=== PATIENT | male | born 1960 | race Caucasian/White ===

== ENCOUNTER 2020-10-03 18:28 | Inpatient (IN) | payer SELFPAY ==
[~2020-10-03 18:28] MED LIST: Dexamethasone 20 MG/5 ML VIAL ONE; Lidocaine 1% PF 5 ML VIAL ONE; Ondansetron PF 4 MG/2 ML Vial ONE; PHENYLEPHRINE-NS 100 MCG/ML 10 ML SYRINGE ONE; PROPOFOL 200 MG/20 ML VIAL ONE; Succinylcholine 200 MG/10 ml SYRINGE FS ONE
[2020-10-03] MEDS ORDERED: Sodium Chloride 0.9% 0 ML ONE (18:44)
[2020-10-03] MEDS ORDERED: Chlorhexidine Gluconate 15 ML UDCUP SSP ONE (18:44)
[2020-10-03] MEDS ORDERED: Bacitracin Zinc Ointment 30 gm TUBE ONE (18:44)
[2020-10-03] MEDS ORDERED: Lidocaine 1% w/Epinephrine 1:100K 20 ML VIAL ONE (18:44)
[2020-10-03] MEDS ORDERED: Fentanyl 100 MCG/2 ML VIAL ONE ×3 (18:46→21:41)
[2020-10-03] MEDS ORDERED: HYDROmorphone 0.5 MG/0.5 ML SYRINGE ONE (18:47)
[2020-10-03] MEDS ORDERED: AFRIN NASAL MIST 15 ML BOT ONE (19:02)
[2020-10-03] MEDS ORDERED: Phenylephrine 10 MG/ML VIAL ONE (20:10)
[2020-10-03] MEDS ORDERED: Ondansetron HCl/PF 4 MG/2 ML Vial IVP PRN (20:42)
[2020-10-03] MEDS ORDERED: Promethazine HCl 25 MG/ML VIAL SLOW IVP PRN (20:42)
[2020-10-03] MEDS ORDERED: Ondansetron PF 4 MG/2 ML Vial IVP PRN (21:18)
[2020-10-03] MEDS ORDERED: Acetaminophen 325 MG TAB PO PRN (21:18)
[2020-10-03] MEDS ORDERED: Dextrose 50% Abboject 50 ML SYRINGE SLOW IVP PRN (21:22)
[2020-10-03] MEDS ORDERED: Dextrose 5% in Water 1,000 ML IV PRN (21:22)
[2020-10-03] MEDS ORDERED: Ibuprofen 600 MG TAB PO PRN (21:37)
[2020-10-03] MEDS: Clindamycin/D5W 600 MG in Premix Bag 1 BAG IVPB SCH (23:21)
[2020-10-03] MEDS: HYDROcodone/Acetaminophen 5/325 mg Tablet PO PRN (23:36)
[2020-10-04] MEDS: Clindamycin/D5W 600 MG in Premix Bag 1 BAG IVPB SCH ×4 (06:31→23:53)
[2020-10-04] MEDS: HumaLOG 300 UNITS/3 ML VIAL SC PRN ×2 (06:32→15:37)
[2020-10-04 07:28] LABS: #Basophils 0.1 thou/uL (0.0-0.2); #Lymphocytes 0.3 thou/uL (1.20-3.40); #Monocytes 0.3 thou/uL (0.11-0.59); #Neutrophils 7.9 thou/uL (1.40-6.50); %Basophils 1.1 % (0.0-1.0); %Eosinophils 0.1 % (0.0-10.0); %Lymphocytes 3.3 % (21.0-51.0); %Monocytes 2.9 % (0.0-10.0); %Neutrophils 92.6 % (42.0-75.0); Hemoglobin 13.3 g/dL (14.0-18.0); Mean Corpuscular HGB CONC 32.6 g/dL (32.0-36.0); Mean Corpuscular Hemoglobin 32.6 pg (27.0-31.0); Mean Platelet Volume 6.9 fL (7.4-10.4); Platelet Count 289 thou/uL (130-400); Red Blood Cell (RBC) Count 4.07 mill/uL (4.70-6.10); White Blood Cell (WBC) Count 8.6 thou/uL (4.8-10.8)
[2020-10-04 07:49] LABS: Anion Gap 15 mmol/L (10-20); BUN (Urea Nitrogen) 12 mg/dL (8.4-25.7); Calc. Creatinine Clearance 88 mL/min (70-130); Calcium 8.3 mg/dL (7.8-10.44); Carbon Dioxide 22 mmol/L (22-29); Chloride 103 mmol/L (98-107); Glucose 262 mg/dL (70-105); Sodium 135 mmol/L (136-145)
[2020-10-04] MEDS ORDERED: traMADol HCl 50 MG TAB PO PRN (07:53)
[2020-10-04] MEDS: Glimepiride 2 MG TAB PO SCH ×2 (09:29→21:31)
[2020-10-04] MEDS: busPIRone HCl 5 MG TAB PO SCH ×2 (09:29→21:30)
[2020-10-04] MEDS: Levothyroxine Sodium 100 MCG TAB PO SCH (09:29)
[2020-10-04] MEDS: metFORMIN 500 MG TAB PO SCH ×2 (09:29→18:16)
[2020-10-04] MEDS: HYDROcodone/Acetaminophen 5/325 mg Tablet PO PRN ×4 (09:33→23:53)
[2020-10-04] MEDS: Chlorhexidine Gluconate 15 ML UDCUP SSP SCH ×3 (10:38→21:31)
[2020-10-04] MEDS: Bacitracin 1 PK TOP PRN (10:39)
[2020-10-05] MEDS: Clindamycin/D5W 600 MG in Premix Bag 1 BAG IVPB SCH ×2 (05:45→11:58)
[2020-10-05] MEDS: HYDROcodone/Acetaminophen 5/325 mg Tablet PO PRN ×5 (05:46→23:37)
[2020-10-05 06:55] LABS: #Eosinphils 0.1 thou/uL (0.0-0.7); #Lymphocytes 1.4 thou/uL (1.20-3.40); #Monocytes 1.2 thou/uL (0.11-0.59); #Neutrophils 5.8 thou/uL (1.40-6.50); %Basophils 0.3 % (0.0-1.0); %Eosinophils 1.2 % (0.0-10.0); %Lymphocytes 16.7 % (21.0-51.0); %Monocytes 13.8 % (0.0-10.0); Hemoglobin 12.2 g/dL (14.0-18.0); Mean Corpuscular HGB CONC 32.5 g/dL (32.0-36.0); Mean Corpuscular Hemoglobin 32.4 pg (27.0-31.0); Mean Corpuscular Volume 99.9 fL (78.0-98.0); Mean Platelet Volume 6.9 fL (7.4-10.4); Platelet Count 311 thou/uL (130-400); RBC Distribution Width 11.9 % (11.5-14.5); Red Blood Cell (RBC) Count 3.76 mill/uL (4.70-6.10); White Blood Cell (WBC) Count 8.5 thou/uL (4.8-10.8)
[2020-10-05 07:07] LABS: Anion Gap 12 mmol/L (10-20); BUN (Urea Nitrogen) 18 mg/dL (8.4-25.7); Calc. Creatinine Clearance 91 mL/min (70-130); Calcium 7.8 mg/dL (7.8-10.44); Carbon Dioxide 22 mmol/L (22-29); Chloride 105 mmol/L (98-107); Glucose 184 mg/dL (70-105); Potassium 3.2 mmol/L (3.5-5.1); Sodium 136 mmol/L (136-145)
[2020-10-05] MEDS: metFORMIN 500 MG TAB PO SCH ×2 (09:06→17:36)
[2020-10-05] MEDS: busPIRone HCl 5 MG TAB PO SCH ×2 (09:06→21:10)
[2020-10-05] MEDS: Glimepiride 2 MG TAB PO SCH ×2 (09:06→21:10)
[2020-10-05] MEDS: Levothyroxine Sodium 100 MCG TAB PO SCH (09:06)
[2020-10-05] MEDS: Bacitracin 1 PK TOP PRN (09:07)
[2020-10-05] MEDS: Chlorhexidine Gluconate 15 ML UDCUP SSP SCH ×3 (09:14→21:10)
[2020-10-05] MEDS ORDERED: Potassium Chloride 20 MEQ TAB PO SCH (15:00)
[2020-10-05] MEDS ORDERED: Polyethylene Glycol 3350 17 GM Packet PO SCH (17:30)
[2020-10-05] MEDS: Clindamycin 150 MG CAP PO SCH ×2 (17:36→23:36)
[2020-10-05] MEDS ORDERED: Lactinex Tablet PO SCH (18:00)
[2020-10-06] MEDS: Clindamycin 150 MG CAP PO SCH ×2 (05:32→11:33)
[2020-10-06] MEDS: HYDROcodone/Acetaminophen 5/325 mg Tablet PO PRN (05:32)
[2020-10-06] MEDS: metFORMIN 500 MG TAB PO SCH (08:50)
[2020-10-06] MEDS: Levothyroxine Sodium 100 MCG TAB PO SCH (08:50)
[2020-10-06] MEDS: busPIRone HCl 5 MG TAB PO SCH (08:50)
[2020-10-06] MEDS: Chlorhexidine Gluconate 15 ML UDCUP SSP SCH ×3 (08:51→11:33)
[2020-10-06] MEDS: Glimepiride 2 MG TAB PO SCH (08:52)
[2020-10-06] MEDS ORDERED: Enoxaparin Sodium 30 MG/0.3 ML SYRINGE SC SCH (09:00)
[2020-10-06] MEDS ORDERED: Lactinex Tablet PO SCH (09:00)
[2020-10-06 11:13] VITALS: BP 165/102; TEMP 98.1
== END 2020-10-06 15:14 | disposition home or self-care (01) | DRG 137 ==
LOC: ERS 18:28 → T4-B 21:18 → OBSVTOIN 10-06 10:13
PROVIDERS: ADMIT Internal Medicine; ATTEND Internal Medicine
PROC: 0C900ZZ Drainage of Upper Lip, Open Approach (ICD-10-PCS; principal; 2020-10-03)
PROC: 0CDWXZ1 Extraction of Upper Tooth, Multiple, External Approach (ICD-10-PCS; 2020-10-03)
DX: J34.0 Abscess, furuncle and carbuncle of nose (principal); L03.211 Cellulitis of face; J34.89 Other specified disorders of nose and nasal sinuses; B18.2 Chronic viral hepatitis C; E03.9 Hypothyroidism, unspecified; E87.6 Hypokalemia; E11.9 Type 2 diabetes mellitus without complications; B95.61 Methicillin susceptible Staphylococcus aureus infection as the cause of diseases classified elsewhere; Z79.84 Long term (current) use of oral hypoglycemic drugs; Z90.49 Acquired absence of other specified parts of digestive tract
CPT/HCPCS: 36415; 36416; 80048; 85025; 87070; 87077; 87186; 87205; 96365; 96366; 99285; G0378; J1100; J1170; J1815; J2370; J2405; J2704; J3010; J3490